=== PATIENT | female | born 1990 | race African-American/Black ===

== ENCOUNTER 2016-11-05 17:38 | Emergency (ER) | payer BC ==
--- NOTE | 2016-11-05 17:53 | ER Document Report ---
ED Medical Screen (RME) - General Stated Complaint: VAGINAL DISCHARGE Notes: LMP: sep [id number] OBGYN at [facility] and she had polyp removed from her cervix. Since wednesday, spotting and then she states she passed tissue, denies vaginal bleeding , denies cramping pain. denies urinary symptoms, vaginal d/c. I have greeted and performed a rapid initial assessment of this patient. A comprehensive ED assessment and evaluation of the patient, analysis of test results and completion of the medical decision making process will be conducted by additional ED providers. TRAVEL OUTSIDE OF THE [place] IN LAST 30 DAYS: No - Related Data Allergies/Adverse Reactions: No Known Allergies Allergy (Verified 07/17/16 14:39) Past Medical History Past Surgical History: Reports: Hx Adenoidectomy, Hx Tonsillectomy - Immunizations Hx Diphtheria, Pertussis, Tetanus Vaccination: No
[2016-11-05 18:58] LABS: APPEARANCE,URINE CLEAR; BILIRUBIN,URINE NEGATIVE (NEGATIVE); GLUCOSE, URINE NEGATIVE (NEGATIVE); KETONES,URINE NEGATIVE (NEGATIVE); LEUKOCYTE ESTERASE,URINE NEGATIVE (NEGATIVE); NITRITE,URINE NEGATIVE (NEGATIVE); PROTEIN,URINE NEGATIVE (NEGATIVE); URINE SPECIFIC GRAVITY 1.026; UROBILINOGEN,URINE NEGATIVE mg/dL (<2.0)
--- NOTE | 2016-11-05 19:38 | ER Document Report ---
ED GI/ - General Chief Complaint: Vaginal Discharge Stated Complaint: VAGINAL DISCHARGE Notes: Patient is a 26-year-old at 8 weeks gestation by first trimester ultrasound the emergency department for chief complaint of passing a tissue this evening, she states that she has had some bleeding and cramps over the past couple of days but this had resolved, she also had a cervical polyp removed on Wednesday by SUSTAINABLE DESIGN COORDINATOR. She denies any current symptoms. She has had workup to this point by [facility], she denies any medications other than vitamins. TRAVEL OUTSIDE OF THE [place] IN LAST 30 DAYS: No - Related Data Allergies/Adverse Reactions: No Known Allergies Allergy (Verified 11/05/16 17:51) Past Medical History - General Information source: Patient - Social History Smoking Status: Never Smoker Chew tobacco use (# tins/day): No Frequency of alcohol use: None Drug Abuse: None Lives with: Family Family History: Reviewed & Not Pertinent Patient has suicidal ideation: No Patient has homicidal ideation: No - Medical History Medical History: Negative Renal/ Medical History: Denies: Hx Peritoneal Dialysis Past Surgical History: Reports: Hx Adenoidectomy, Hx Tonsillectomy - Immunizations Hx Diphtheria, Pertussis, Tetanus Vaccination: Yes Review of Systems - Review of Systems Constitutional: No symptoms reported EENT: No symptoms reported Cardiovascular: No symptoms reported Respiratory: No symptoms reported Gastrointestinal: No symptoms reported Genitourinary: No symptoms reported Female Genitourinary: See HPI Musculoskeletal: No symptoms reported Skin: No symptoms reported Hematologic/Lymphatic: No symptoms reported Neurological/Psychological: No symptoms reported Physical Exam - Vital signs Vitals: Temp Pulse Resp BP Pulse Ox 98.8 F 80 20 150/87 H 100 11/05/16 17:51 11/05/16 17:51 11/05/16 17:51 11/05/16 17:51 11/05/16 17:51 Interpretation: Normal - General General appearance: Appears well, Alert In distress: None - HEENT Head: Normocephalic, Atraumatic Eyes: Normal Extraocular movements intact: Yes Eyelashes: Normal Pupils: PERRL Nasal: Normal Mouth/Lips: Normal Mucous membranes: Normal Pharynx: Normal Neck: Normal - Respiratory Respiratory status: No respiratory distress Chest status: Nontender Breath sounds: Normal. No: Decreased air movement, Wheezing Chest palpation: Normal - Cardiovascular Rhythm: Regular. No: Tachycardia Heart sounds: Normal auscultation, S1 appreciated, S2 appreciated Murmur: No - Abdominal Inspection: Normal Distension: No distension Bowel sounds: Normal Tenderness: Nontender. No: Tender, Guarding Organomegaly: No organomegaly - Back Back: Normal, Nontender. No: Tender, CVA tenderness - Extremities General upper extremity: Normal inspection, Nontender, Normal color, Normal ROM , Normal temperature General lower extremity: Normal inspection, Nontender, Normal color, Normal ROM , Normal temperature, Normal weight bearing. No: Dorina's sign - Neurological Neuro grossly intact: Yes Cognition: Normal Orientation: AAOx4 [place] Coma Scale Eye Opening: Spontaneous Loren Coma Scale Verbal: Oriented [place] Coma Scale Motor: Obeys Commands Loren Coma Scale Total: 15 Speech: Normal Motor strength normal: LUE, RUE, LLE, RLE Sensory: Normal - Psychological Associated symptoms: Normal affect, Normal mood - Skin Skin Temperature: Warm Skin Moisture: Dry Skin Color: Normal Course - Re-evaluation Re-evalutation: Patient brought the small amount of tissue in a paper towel to the emergency department tonight, I did review this, no veins suggesting placenta, no obvious tissue, there is some epithelial appearing tissue but nothing large or specific. Soft and non-tender abdomen. 11/06/16 CBC shows mild anemia, RhoGAM not indicated, urinalysis unremarkable, hCG is elevated. Ultrasound shows living IUP with normal findings with no acute abnormalities. Valuated patient, presented findings, patient is very satisfied with this, she states she is ready to leave. No current symptoms. I suspect small amount of tissue was related to the polyp removal although this is not definite, abdomen is soft, vital signs unremarkable, workup unremarkable, discussed follow-up and return precautions, patient states understanding and agreement. - Vital Signs Vital signs: Temp Pulse Resp BP Pulse Ox 98.1 F 67 16 128/71 H 96 11/05/16 21:24 11/05/16 21:24 11/05/16 21:24 11/05/16 21:24 11/05/16 21:24 - Laboratory Result Diagrams: 11/05/16 17:55 Laboratory results interpreted by me: 11/05/16 11/05/16 11/05/16 17:55 17:55 18:00 Hgb 11.4 L Hct 34.8 L MCV 79 L MCH 25.9 L RDW 16.1 H Serum HCG, Qual POSITIVE H Beta HCG, Quant 149669.00 H Discharge - Discharge Clinical Impression: Vaginal discharge, gestational Qualifiers: Trimester: first trimester Qualified Code(s): O26.891 - Other specified related conditions, first trimester Condition: Stable Disposition: HOME, SELF-CARE Additional Instructions: Ultrasound, examination, and workup with no concerning abnormalities. Living intrauterine is seen with no abnormalities. Tissue passed is most likely secondary to the removed polyp, although this is not definite at this time. Follow up with SUSTAINABLE DESIGN COORDINATOR Return the emergency department for any concerning symptoms. Forms: Return to Work Referrals: CLARY WELLINGTON MD [Primary Care Provider] - Follow up as needed
[2016-11-05 20:06] LABS: ABSOLUTE EOSINOPHILS # (AUTO) 0.1 10^3/uL (0.0-0.6); ABSOLUTE MONOCYTES (AUTO) 0.9 10^3/uL (0.1-1.4); BASOPHILS % (AUTO) 0.4 % (0-2); EOSINOPHILS % (AUTO) 0.9 % (0-6); HEMATOCRIT 34.8 % (36.0-47.0); HEMOGLOBIN 11.4 g/dL (12.0-15.5); HGB HCT DIFFERENCE -0.6; LYMPHOCYTES % (AUTO) 33.2 % (13-45); MEAN CORPUSCULAR HEMOGLOBIN 25.9 pg (27.0-33.4); MEAN CORPUSCULAR HGB CONC 32.9 g/dL (32.0-36.0); MEAN CORPUSCULAR VOLUME 79 fl (80-97); MONOCYTES % (AUTO) 10.5 % (3-13); RED BLOOD COUNT 4.42 10^6/uL (3.72-5.28); RED CELL DISTRIBUTION WIDTH 16.1 % (11.5-14.0)
[2016-11-05 21:25] VITALS: BP 128/71
== END 2016-11-05 21:24 | disposition home or self-care (01) ==
LOC: ER 17:38
DX: O26.891 Other specified pregnancy related conditions, first trimester (principal); N89.8 Other specified noninflammatory disorders of vagina; Z3A.08 8 weeks gestation of pregnancy
CPT/HCPCS: 36415; 76817; 81001; 84702; 84703; 85025; 86900; 86901; 87086; 93976; 99284

== ENCOUNTER 2017-06-02 11:39 | Outpatient (CLI) | payer BC ==
--- NOTE | 2017-06-02 13:56 | Non Stress Test Report ---
Non Stress Test Datetime Report Generated by CPN: 06/02/2017 13:56 DEMOGRAPHIC EGA NST: 38.2 INDICATION Indication for Study: Ordered by Provider Indication for Study (NST) Other: Repeat MONITORING Monitor Explained: Monitor Explained; Test Explained; Patient Verbalized Understanding Time on Monitor: 06/02/2017 13:35 Time off Monitor: 06/02/2017 12:55 NST Duration: -40 NST INTERVENTIONS NST Interventions: PO Hydration; Reposition Patient Physician Notified NST: H. Jeyson CNM BABY A: [id number] BABY A Movement : Present Contraction Frequency : none FHR Baseline : 155 Accelerations : 15X15 Decelerations : None Variability : Moderate 6-25bpm NST Review: Meets Criteria for Reactive NST NST Review and Verified By : dbellavance rnc NST Results: Reactive NST REPORT Report Trigger: Send Report
== END 2017-06-02 12:55 | disposition home or self-care (01) ==
LOC: LC 11:39
PROVIDERS: ATTEND Student in an Organized Health Care Education/Training Program
PROC: 4A1HXCZ Monitoring of Products of Conception, Cardiac Rate, External Approach (ICD-10-PCS; principal; 2017-06-02)
DX: Z34.93 Encounter for supervision of normal pregnancy, unspecified, third trimester (principal); Z36.89 Encounter for other specified antenatal screening; Z3A.38 38 weeks gestation of pregnancy
CPT/HCPCS: 59025

== ENCOUNTER 2017-06-09 12:23 | Outpatient (CLI) | payer BC ==
--- NOTE | 2017-06-17 05:14 | Non Stress Test Report ---
Non Stress Test Datetime Report Generated by CPN: 06/17/2017 05:14 DEMOGRAPHIC EGA NST: 39.2 INDICATION Indication for Study: Ordered by Provider; Other Indication for Study (NST) Other: tachycardia in provider's office VITAL SIGNS Temperature - NST: 98.2 Pulse - NST: 99 RESP - NST: 18 NBPSYS NST: 115 NBPDIA NST: 66 MONITORING Monitor Explained: Monitor Explained; Test Explained; Patient Verbalized Understanding; Other Time on Monitor: 06/09/2017 12:40 Time off Monitor: 06/09/2017 13:42 NST Duration: 62 NST INTERVENTIONS NST Interventions: PO Hydration; Reposition Patient Physician Notified NST: Dalia Torres, CNM. Provider reviewed strip BABY A: [id number] BABY A Movement : Present Contraction Frequency : Irregular FHR Baseline : 150 Accelerations : 15X15 Decelerations : None Variability : Moderate 6-25bpm NST Review: Meets Criteria for Reactive NST NST Review and Verified By : Austin Gifford RNC NST Results: Reactive NST REPORT Report Trigger: Send Report
== END 2017-06-09 13:48 | disposition home or self-care (01) ==
LOC: LC 12:23
PROVIDERS: ATTEND Obstetrics & Gynecology
PROC: 4A1HXCZ Monitoring of Products of Conception, Cardiac Rate, External Approach (ICD-10-PCS; principal; 2017-06-09)
DX: O76 Abnormality in fetal heart rate and rhythm complicating labor and delivery (principal); Z3A.39 39 weeks gestation of pregnancy
CPT/HCPCS: 59025

== ENCOUNTER 2017-06-17 06:59 | Inpatient (IN) | payer BC ==
[2017-06-17] MEDS ORDERED: OXYTOCIN/NORMAL SALINE 20 UNIT/1,000 ML RTUINJ IV PRN ×2 (07:12→18:45)
[2017-06-17 07:54] LABS: APPEARANCE,URINE SLIGHTLY-CLOUDY; BILIRUBIN,URINE NEGATIVE (NEGATIVE); GLUCOSE, URINE NEGATIVE (NEGATIVE); KETONES,URINE NEGATIVE (NEGATIVE); LEUKOCYTE ESTERASE,URINE SMALL (NEGATIVE); NITRITE,URINE NEGATIVE (NEGATIVE); PROTEIN,URINE 30 mg/dL (NEGATIVE); URINE SPECIFIC GRAVITY 1.028; UROBILINOGEN,URINE NEGATIVE mg/dL (<2.0)
[2017-06-17 08:00] LABS: ABSOLUTE LYMPHOCYTES (AUTO) 2.4 10^3/uL (0.5-4.7); ABSOLUTE MONOCYTES (AUTO) 0.7 10^3/uL (0.1-1.4); ABSOLUTE NEUT (AUTO) 4.8 10^3/uL (1.7-8.2); BASOPHILS % (AUTO) 0.2 % (0-2); EOSINOPHILS % (AUTO) 0.6 % (0-6); HEMATOCRIT 28.4 % (36.0-47.0); HEMOGLOBIN 9.2 g/dL (12.0-15.5); HGB HCT DIFFERENCE -0.8; MEAN CORPUSCULAR HEMOGLOBIN 22.2 pg (27.0-33.4); MEAN CORPUSCULAR HGB CONC 32.4 g/dL (32.0-36.0); MEAN CORPUSCULAR VOLUME 69 fl (80-97); MONOCYTES % (AUTO) 8.6 % (3-13); RED BLOOD COUNT 4.14 10^6/uL (3.72-5.28); RED CELL DISTRIBUTION WIDTH 21.5 % (11.5-14.0); SEGMENTED NEUTROPHILS % (AUTO) 60.6 % (42-78); WHITE BLOOD COUNT 7.9 10^3/uL (4.0-10.5)
[2017-06-17] MEDS ORDERED: OXYTOCIN/NORMAL SALINE 20 UNIT/1,000 ML RTUINJ ONE (08:09)
[2017-06-17 08:12] LABS: URINE BARBITURATES SCREEN NEGATIVE; URINE METHADONE SCREEN NEGATIVE; URINE OPIATES LOW NEGATIVE; URINE PHENCYCLIDINE SCREEN NEGATIVE
[2017-06-17] MEDS ORDERED: RINGERS SOLUTION,LACTATED 300 ML IV ONE (10:42)
[2017-06-17] MEDS ORDERED: RINGERS SOLUTION,LACTATED 1,000 ML IV PRN (10:42)
--- NOTE | 2017-06-17 12:32 | L&D Progress Notes ---
PROGRESS NOTES Datetime Report Generated by CPN: 06/17/2017 12:32 PROGRESS NOTE Impression: Reassuring Heart Rate Procedures: Artificial ROM; Sterile Vag Exam Plan: Continue Present Management; Induction Informed Consent Obtained: Vaginal Delivery Vital Signs : Reviewed; Within Normal Limits Comment: VE = 6-7/100/vtx/0, requesting epidural, Cat 1 strip VAGINAL EXAM Dilatation: 6 Effacement: 100 Station: 0 MEMBRANES Membranes: Ruptured Amniotic Fluid Color: Clear FETUS A FHR - Baseline: 155 Variability: Moderate 6-25bpm Accelerations: 15X15 Decelerations: None : 40.3 SIGNATURE SIGNATURE: [id number] SIGNATURE: [id number] SIGNATURE: [id number] Assignment: Cindy Mojica MD Signature: with User ID: [email or web address] : with User ID: [email or web address]
[2017-06-17] MEDS ORDERED: FENTANYL CITRATE INJ/PF 100 MCG/2 ML AMPUL ONE (12:33)
[2017-06-17] MEDS ORDERED: EPHEDRINE SULFATE INJ 50 MG/1 ML AMPULE ONE (12:34)
[2017-06-17] MEDS ORDERED: FENTANYL/BUPIVACAINE/NS/PF 200 MCG/100 ML RTUINJ EPI ONE (12:34)
[2017-06-17] MEDS ORDERED: PHENYLEPHRINE HCL INJ/PF 10 MG/1 ML SDV ONE (12:34)
[2017-06-17] MEDS ORDERED: BUPIVACAINE HCL 0.25 % INJ/PF (2.5 MG/1 ML) 30 ML VIAL ONE ×2 (12:34→12:37)
[2017-06-17] MEDS ORDERED: LIDOCAINE 1% INJ-PF (10 MG/ML) 30 ML SDV ONE ×2 (12:48→13:35)
[2017-06-17] MEDS ORDERED: MISOPROSTOL 0.2 MG TABLET ONE (13:35)
--- NOTE | 2017-06-17 13:50 | L&D Progress Notes ---
PROGRESS NOTES Datetime Report Generated by CPN: 06/17/2017 13:50 PROGRESS NOTE Impression: Normal Progression of Labor; Reassuring Heart Rate Procedures: Sterile Vag Exam Comment: VE /vtx/0, late decels after epidural resolved, + scalp stim. mod variability, uc's q 2-3 min, Pitocin off FETUS C SIGNATURE: [id number];[id number] Assignment: Cindy Mojica MD Signature: with User ID: [email or web address] : with User ID: [email or web address]
--- NOTE | 2017-06-17 15:30 | L&D Progress Notes ---
PROGRESS NOTES Datetime Report Generated by CPN: 06/17/2017 15:30 PROGRESS NOTE Procedures: Sterile Vag Exam Plan: Induction Comment: Rim, small amount of suture on cervix from cerclage, + scalp stim, uc's q 2-2 1/2, comfortable FETUS C SIGNATURE: [id number];[id number] Assignment: Cindy Mojica MD Signature: with User ID: [email or web address] : with User ID: [email or web address]
[2017-06-17] MEDS ORDERED: NORMAL SALINE 250 ML IV PRN (16:42)
[2017-06-17] MEDS ORDERED: ACETAMINOPHEN 325 MG TABLET ONE (17:42)
[2017-06-17] MEDS ORDERED: ACETAMINOPHEN 325 MG TABLET PO ONE (17:43)
[2017-06-17] MEDS ORDERED: MEASLES,MUMPS&RUBELLA VACC/PF 0.5 ML VIAL SUBCUT PRN (18:45)
[2017-06-17] MEDS ORDERED: ACETAMINOPHEN WITH CODEINE #3 TABLET PO PRN ×2 (18:45)
[2017-06-17] MEDS ORDERED: PROMETHAZINE HCL INJ 25 MG/1 ML VIAL IV PRN (18:45)
[2017-06-17] MEDS ORDERED: NA PHOS,M-B/NA PHOS,DI-BA (ADULT) 133 ML ENEMA PR PRN (18:45)
[2017-06-17] MEDS ORDERED: BENZOCAINE/MENTHOL AEROSOL SPRAY 56 ML TOP PRN (18:45)
[2017-06-17] MEDS ORDERED: DIPH/PERTUSS(ACELL)/TETANUS VAC/PF 0.5 ML SYR (>=10YO) IM PRN (18:45)
[2017-06-17] MEDS ORDERED: MAGNESIUM HYDROXIDE SUSP 30 ML UDCUP PO PRN (18:45)
[2017-06-17] MEDS ORDERED: GLYCERIN/WITCH HAZEL LEAF 1 EACH MED..PAD TP PRN (18:45)
[2017-06-17] MEDS ORDERED: PROMETHAZINE HCL 25 MG SUPP.RECT PR PRN (18:45)
[2017-06-17] MEDS ORDERED: PROMETHAZINE HCL 25 MG TABLET PO PRN (18:45)
[2017-06-17] MEDS ORDERED: ZOLPIDEM TARTRATE 5 MG TABLET PO PRN (18:45)
[2017-06-17] MEDS ORDERED: ACETAMINOPHEN 650 MG SUPP.RECT PR PRN (18:45)
[2017-06-17] MEDS ORDERED: DIBUCAINE 1% OINTMENT 28 GM TP PRN (18:45)
[2017-06-17] MEDS ORDERED: PSEUDOEPHEDRINE HCL 30 MG TABLET PO PRN (18:45)
[2017-06-17] MEDS ORDERED: DIPHENHYDRAMINE HCL 25 MG CAPSULE PO PRN (18:45)
--- NOTE | 2017-06-17 19:39 | Delivery Summary ---
Del Sum A-C Datetime Report Generated by CPN: 06/17/2017 19:39 DELIVERY PERSONNEL DELIVERY PERSONNEL: [id number] Delivery Doctor:: Cidny Mojica MD Labor and Delivery Nurse:: Seth Molina RNmedical office representative Nurse:: TAWNY Colmenares Nursery Nurse:: Tereso Pressley RN Nursery Nurse:: Edel Almaraz RN Pouch Making Machine Operator/HOME VISITOR HOME BASE HEAD START: Maria Dolores Griffith CNA II Pouch Making Machine Operator/HOME VISITOR HOME BASE HEAD START: Eloise Sanchez CST Additional Personnel: : VU MitchellIII MATERNAL INFORMATION Delivery Anesthesia: Epidural Medications After Delivery: Pitocin Bolus-Please Comment; Pitocin Drip 20 Units/1000ml NSS Estimated Blood Loss (ml): 300 Maternal Complications: None LABOR SUMMARY EDC: 06/14/2017 00:00 No. Babies in Womb: 1 Attempted: No Labor Anesthesia: Epidural LABOR INFORMATION Reason for Induction: Post Dates; Polyhydramnios; Other Reason for Induction- Other: GDM Onset of Labor: 06/17/2017 12:27 Complete Dilatation: 06/17/2017 17:48 Oxytocin: Induction Group B Beta Strep: neg Antibiotics # of Doses: 0 Steroids Given: None Reason Steroids Not Administered: Not Applicable MEMBRANES Membranes Rupture Method: Artificial Rupture of Membranes: 06/17/2017 12:28 Length of Rupture (hr): 5.78 Amniotic Fluid Color: Clear Amniotic Fluid Amount: Large Amniotic Fluid Odor: Normal STAGES OF LABOR Stage 1 hr: 5 Stage 1 min: 21 Stage 2 hr: 0 Stage 2 min: 27 Stage 3 hr: 0 Stage 3 min: 6 Total Time in Labor hr: 5 Total Time in Labor min: 54 VAGINAL DELIVERY Episiotomy: None Laceration #1: Cervical Laceration Extension #1: N/A Laceration Repair: Yes Laceration Repair Note: cervix repaired with 2-0 chromic in running locked fashion. Cervix noted to have defect with hole torn in posterior aspect of cervix. Did not repair as the hole was complete and hemostatic. will assess Sponge Count Correct: N/A Sharps Count Correct: N/A CSECTION DELIVERY Primary Indication: N/A CSection Incidence: N/A Labor: N/A Elective: N/A CSection Incision: N/A BABY A INFORMATION Delivery Date/Time: 06/17/2017 18:15 Method of Delivery: Vaginal Born in Route : No : N/A Forceps: N/A Vacuum Extraction: N/A Shoulder Dystocia : No PRESENTATION/POSITION BABY A Presentation: Cephalic Cephalic Presentation: Vertex Vertex Position: Direct OA Breech Presentation: N/A PLACENTA INFORMATION BABY A Placenta Delivery Time : 06/17/2017 18:21 Placenta Method of Delivery: Spontaneous Placenta Status: Delivered SCORES BABY A Heart Rate 1 min: >100 bpm Resp Effort 1 min: Slow, Irregular Reflex Irritability 1 min: Cough or Sneeze or Pulls Away Muscle Tone 1 min: Active Motion Color 1 min: Body Buck[place], Extremities Blue SCORE 1 MIN: 8 Heart Rate 5 min: >100 bpm Resp Effort 5 min: Good Cry Reflex Irritability 5 min: Cough or Sneeze or Pulls Away Muscle Tone 5 min: Active Motion Color 5 min: Body [place], Extremities Blue SCORE 5 MIN: 9 INFORMATION BABY A Gestational Age at Delivery: 40.3 Gestational Status: Full Term- 39- 40.6 Weeks Outcome : Liveborn Condition : Stable Sex: Female IDENTIFICATION BABY A Infant Verification Date/Time: 06/17/2017 18:36 ID Band Number: [id number] Mother's Name Verified: Yes Infant RN Verifying : C Cotterman RN Additional Verifying Personnel: D [facility] RNC WEIGHT/LENGTH BABY A Infant Birthweight (gm): 3570 Infant Weight (lb): 7 Weight (oz): 14 Length (in): 21.50 Length (cm): 54.61 CORD INFORMATION BABY A No. Cord Vessels: 3 Nuchal Cord : N/A Cord Blood Taken: Yes-For Storage (Mom's Blood type +) Suction: None; Mouth ASSESSMENT BABY A Complications: None Physical Findings at Delivery: Within Normal Limits Infant Respirations: Appears Normal Skin to Skin: Yes Skin to Skin Time (min): 60 Medical Assistant Supervisor/ALS Called : No Infant Care By: Antolin Pressley, RN Transferred To: Remains with Mother BABY B INFORMATION : N/A SIGNATURES Signature: with User ID: [email or web address]
--- NOTE | 2017-06-17 20:34 | Admission Physical ---
Datetime Report Generated by CPN: 06/17/2017 20:33 CURRENT ADMISSION Chief Complaint: Scheduled Induction of Labor Indication for Induction: Postterm; Maternal Diabetes Indication for Induction: Postterm, Intrauterine ; No Active Labor; Intact Membranes; Induction of Labor Admit Plan: Admit to Unit; Initiate Labor Induction Protocol ALLERGIES Medication Allergies: No Medication Allergies: No Known Allergies (06/17/2017) Medication Allergies: No Known Allergies (06/09/2017) Medication Allergies: No Known Allergies (11/05/2016) Medication Allergies: No Known Allergies (07/17/2016) Medication Allergies: No Known Allergies (02/06/2014) Latex: No Latex Allergies OBSTETRICAL HISTORY EDC: 06/14/2017 00:00 : 5 Para: 1 Term: 0 : 1 SAB: 3 IAB: 0 Ectopic: 0 Livin Cesareans: 0 VBACs: 0 Multiple Births: 0 Gestational Diabetes: Yes Rh Sensitization: No Incompetent Cervix: Yes JOCELYN: No Infertility: No ART Treatment: No Uterine Anomaly: No IUGR: No Hx Previous C/S: No Macrosomia: No Hx Loss/Stillborn: No PIH: No Hx : No Placenta Previa/Abruption: No Depression/PP Depression: No PTL/PROM: Yes Post Hemorrhage: Yes Current Procedures: Ultrasound; NST; Cerclage Obstetrical History Comments: G1- 2012 male 1lb 10oz 25 weeks (PTL vs cervical incompetence) - at 1 years old, stopped breathing, enlarged heart during autopsy - 2013 10 week SAB blood transfusion needed G3- 2014 SAB G4- 2015 5 week SAB G6- current, cerclage, p17, gdm, poly, suspicion of partial TEF per MFM SEE RECORDS Alcohol: No Marijuana : No Cocaine: No Other Illicit Drugs: No Cigarettes: Never Smoker. [id number] MEDICAL HISTORY Diabetes: No Blood Transfusion: No Pulmonary Disease (Asthma, TB): No Breast Disease: No Hypertension: No Medicaid Business Analyst Surgery: No Heart Disease: No Hosp/Surgery: Yes Autoimmune Disorder: No Anesthetic Complications: No Kidney Disease: No Abnormal Pap Smear: No Neuro/Epilepsy: No Psychiatric Disorders: No Other Medical Diseases: No Hepatitis/Liver Disease: No Significant Family History: No Varicosities/Phlebitis: No Trauma/Violence : No Thyroid Dysfunction: No Medical History Comments: vit D deficiency INFECTIOUS HISTORY Gonorrhea: No Genital Herpes: No Chlamydia: Yes Tuberculosis: No Syphilis: No Hepatitis: No HIV/AIDS Exposure: No Rash or Viral Illness: No HPV: No Infectious History Comments: chlam 2005 PHYSICAL EXAM General: Normal HEENT: Normal Neurologic: Normal Thyroid: Normal Heart: Normal Lungs: Normal Breast: Deferred Back: Normal Abdomen: Normal Genitourinary Exam: Normal Extremities: Normal DTRs: Normal Pelvic Type: Adequate Physical Exam Comments: Cerclage removed at 37 weeks anemia Obesity Insulin resistance Polyhydramnios resolved 10-2 Vit D deficiency VAGINAL EXAM Dilatation: 6 Effacement: 100 Station: 0 MEMBRANES Membranes: Ruptured Amniotic Fluid Color: Clear FETUS A EGA: 40.3 Monitoring: External US Admit Comment: Cat 1 strip, irreg uc's, feeling uc's but mild, wants epidural when needed POC reviewed PLANS FOR LABOR AND DELIVERY Labor and Delivery: None Pain Management: Epidural Feeding Preference: Breast Benefit of Breast Feed Discussed: Yes Circumcision: N/A INFORMED CONSENT Informed Consent Obtained: Vaginal Delivery Assignment: Cindy Mojica MD Signature: with User ID: [email or web address] : with User ID: [email or web address]
[2017-06-17] MEDS: IBUPROFEN 800 MG TABLET PO SCH (22:26)
[2017-06-17] MEDS: FAMOTIDINE 20 MG TABLET PO SCH (22:27)
[2017-06-18] MEDS: IBUPROFEN 800 MG TABLET PO SCH ×3 (05:17→22:33)
[2017-06-18 08:00] LABS: HGB HCT DIFFERENCE -0.2; MEAN CORPUSCULAR HEMOGLOBIN 22.6 pg (27.0-33.4); MEAN CORPUSCULAR HGB CONC 33.2 g/dL (32.0-36.0); MEAN CORPUSCULAR VOLUME 68 fl (80-97); RED BLOOD COUNT 3.37 10^6/uL (3.72-5.28); RED CELL DISTRIBUTION WIDTH 21.1 % (11.5-14.0); WHITE BLOOD COUNT 10.9 10^3/uL (4.0-10.5)
[2017-06-18 08:02] LABS: HEMOGLOBIN 7.6 g/dL (12.0-15.5)
[2017-06-18] MEDS: FERROUS SULFATE 325 MG TABLET PO SCH ×3 (09:10→17:33)
[2017-06-18] MEDS: SENNOSIDES/DOCUSATE 8.6-50 MG 1 EACH TABLET PO SCH (09:11)
[2017-06-18] MEDS: FAMOTIDINE 20 MG TABLET PO SCH ×2 (09:11→22:33)
[2017-06-18] MEDS: ASCORBIC ACID 500 MG TABLET PO SCH ×2 (09:12→17:32)
[2017-06-18] MEDS: DOCUSATE SODIUM 100 MG CAPSULE PO SCH ×2 (09:12→17:33)
[2017-06-18] MEDS: PRENATAL VITAMIN W-O CA NO5/FE FUMARATE/FA CAPSULE PO SCH (09:14)
--- NOTE | 2017-06-18 09:33 | PDOC PROGRESS REPORT ---
Subjective-OB Subjective: Post Delivery Day: 27 year old. Denies any needs at this time. Pt doing well, no concerns. She reports light bleeding, regular diet and voiding without difficulty. Physical Exam (OB) Vital Signs: Temp Pulse Resp BP Pulse Ox 98.0 F 89 16 103/53 L 100 06/18/17 07:54 06/18/17 07:54 06/18/17 07:54 06/18/17 07:54 06/18/17 07:54 Intake & Output 06/17/17 06/18/17 06/19/17 06:59 06:59 06:59 Intake Total 1999 Balance 1999 Weight 114.15 kg - Lochia Lochia Amount: Small 10-25 ml Lochia Color: Rubra/Red - Abdomen Description: Soft, Round Hernia Present: No Fundal Description: Firm, Midline Fundal Height: u/u - u/2 Objective-Diagnostic Laboratory: 06/18/17 06:55 06/17/17 06/18/17 07:44 06:55 WBC 10.9 H RBC 3.37 L Hgb 7.6 L Hct 23.0 L MCV 68 L MCH 22.6 L MCHC 33.2 RDW 21.1 H Plt Count 162 Blood Type AB POSITIVE Antibody Screen NEGATIVE Assessment and Plan(PN) - Assessment and Plan (1) Anemia due to acute blood loss Is this a current diagnosis for this admission?: Yes (2) Vaginal delivery Is this a current diagnosis for this admission?: Yes - Time Spent with Patient Time with patient: Less than 15 minutes Medications reviewed and adjusted accordingly: Yes - Disposition Anticipated Discharge: Home Within: within 24 hours
[2017-06-18] MEDS ORDERED: FERROUS SULFATE 325 MG TABLET PO SCH (10:00)
[2017-06-19] MEDS: IBUPROFEN 800 MG TABLET PO SCH ×2 (06:29→13:18)
[2017-06-19 08:11] VITALS: BP 109/57
[2017-06-19] MEDS: FAMOTIDINE 20 MG TABLET PO SCH (10:05)
[2017-06-19] MEDS: FERROUS SULFATE 325 MG TABLET PO SCH ×2 (10:05→13:18)
[2017-06-19] MEDS: DOCUSATE SODIUM 100 MG CAPSULE PO SCH (10:05)
[2017-06-19] MEDS: PRENATAL VITAMIN W-O CA NO5/FE FUMARATE/FA CAPSULE PO SCH (10:05)
[2017-06-19] MEDS: SENNOSIDES/DOCUSATE 8.6-50 MG 1 EACH TABLET PO SCH (10:05)
[2017-06-19] MEDS: ASCORBIC ACID 500 MG TABLET PO SCH (10:06)
--- NOTE | 2017-06-19 12:12 | PDOC DISCHARGE SUMMARY ---
Final Diagnosis Discharge Date: 06/19/17 - Final Diagnosis (1) Anemia due to acute blood loss Is this a current diagnosis for this admission?: Yes (2) Vaginal delivery Is this a current diagnosis for this admission?: Yes Discharge Data - Discharge Medication Home Medications: Iron 1 tab PO DAILY 06/02/17 Pnv 102/Iron/Folate 1/Dss/Dha [Vitafol Fe+ Docusate Combo Pck] 1 each PO DAILY 06/02/17 Ergocalciferol (Vitamin D2) [Vitamin D] 400 unit PO PRN PRN 06/09/17 Reason(s) for Admission: Induction of Labor Procedures: NST Intrapartum Procedure(s): Spontaneous Vaginal Delivery Complication(s): Laceration-Cervical Laceration-Degree: 1st - Diagnosis Test Laboratory: Temp Pulse Resp BP Pulse Ox 98.5 F 95 16 109/57 L 100 06/19/17 07:49 06/19/17 07:49 06/19/17 07:49 06/19/17 07:49 06/19/17 07:49 06/17/17 06/17/17 06/18/17 07:10 07:44 06:55 RBC 4.14 3.37 L Hgb 9.2 L 7.6 L Hct 28.4 L 23.0 L Urine Opiates Screen NEGATIVE - Discharge information/Instructions Discharge Activity: Activity As Tolerated, No Lifting/Push/Pulling, Pelvic Rest , No tub bath Discharge Diet: Regular Disposition: HOME, SELF-CARE Follow up with: [facility] in: 4, Weeks
== END 2017-06-19 15:02 | disposition home or self-care (01) | DRG 775 ==
LOC: LR 06:59 → 2S 20:27
PROVIDERS: ADMIT Obstetrics & Gynecology; ATTEND Obstetrics & Gynecology
PROC: 10E0XZZ Delivery of Products of Conception, External Approach (ICD-10-PCS; principal; 2017-06-17)
PROC: 3E0P3VZ Introduction of Hormone into Female Reproductive, Percutaneous Approach (ICD-10-PCS; 2017-06-17)
PROC: 10907ZC Drainage of Amniotic Fluid, Therapeutic from Products of Conception, Via Natural or Artificial Opening (ICD-10-PCS; 2017-06-17)
PROC: 4A1HXCZ Monitoring of Products of Conception, Cardiac Rate, External Approach (ICD-10-PCS; 2017-06-17)
PROC: 3E0234Z Introduction of Serum, Toxoid and Vaccine into Muscle, Percutaneous Approach (ICD-10-PCS; 2017-06-19)
DX: O48.0 Post-term pregnancy (principal); D62 Acute posthemorrhagic anemia; O40.3XX0 Polyhydramnios, third trimester, not applicable or unspecified; O24.429 Gestational diabetes mellitus in childbirth, unspecified control; Z37.0 Single live birth; Z3A.40 40 weeks gestation of pregnancy; O99.02 Anemia complicating childbirth; Z23 Encounter for immunization
CPT/HCPCS: 36415; 80307; 81005; 85025; 85027; 86592; 86850; 86900; 86901; 86920; 90715; 94760; J2370; J2590; J3010; J3490

== ENCOUNTER 2018-12-14 07:27 | Day surgery (SDC) | payer BC ==
[2018-12-14] MEDS ORDERED: CEFAZOLIN 2 GM/D5W RTU 2 GM/50 ML RTUPB IV ONE (07:41)
[2018-12-14 08:26] LABS: MEAN CORPUSCULAR HEMOGLOBIN 26.3 pg (27.0-33.4); MEAN CORPUSCULAR HGB CONC 33.3 g/dL (32.0-36.0); MEAN CORPUSCULAR VOLUME 79 fl (80-97); PLATELET COUNT 256 10^3/uL (150-450); RED BLOOD COUNT 4.18 10^6/uL (3.72-5.28); RED CELL DISTRIBUTION WIDTH 15.5 % (11.5-14.0); WHITE BLOOD COUNT 6.4 10^3/uL (4.0-10.5)
[2018-12-14 08:59] LABS: APPEARANCE,URINE CLEAR; BILIRUBIN,URINE NEGATIVE (NEGATIVE); COLOR,URINE YELLOW; GLUCOSE, URINE NEGATIVE (NEGATIVE); KETONES,URINE TRACE mg/dL (NEGATIVE); LEUKOCYTE ESTERASE,URINE NEGATIVE (NEGATIVE); NITRITE,URINE NEGATIVE (NEGATIVE); PROTEIN,URINE NEGATIVE (NEGATIVE); URINE SPECIFIC GRAVITY 1.027; UROBILINOGEN,URINE NEGATIVE mg/dL (<2.0)
[2018-12-14] MEDS ORDERED: RINGERS SOLUTION,LACTATED 1,000 ML IV PRN (09:58)
--- NOTE | 2018-12-14 10:13 | Operative Report ---
Operative Report DATE OF SURGERY: 12/14/18 PREOPERATIVE DIAGNOSIS: History of cervical incompetence POSTOPERATIVE DIAGNOSIS: Same with the addition of retained cerclage stitch and cervical laceration OPERATION: Shah cerclage placement x1 SURGEON: CHRISTOPHER ZURITA ANESTHESIA: Spinal TISSUE REMOVED OR ALTERED: Cervix COMPLICATIONS: None ESTIMATED BLOOD LOSS: Minimal INTRAOPERATIVE FINDINGS: A cerclage stitch is present with the ends of the suture removed. The knot can be seen. Also the patient has a cervical lacera tion from 3 to 6:00. PROCEDURE: Patient was taken to the OR and placed in supine position. This is after her spinal had been placed. She is placed in dorsolithotomy position using Bc stirrups. She was prepared and draped in sterile fashion. She had voided prior to the procedure. A weighted speculum was placed in the vagina and the anterior lip and posterior lip were grasped with Allis clamps. A Ryan retractor was used to retract anteriorly. At this point I could see a suture knot present at 12:00 on the cervix. The suture material appeared very old. The knot was elevated and the suture incised. The entire stitch was removed intact. Also a cervical laceration that was now well-healed could be seen from 3 to 6:00. A #1 Ethibond suture was then placed from 12:00 to 3:00, 3:00 to 6:00, 6:00 to 9:00, 9:00 to 12:00 and tied. At this point I stopped the procedure. The suture appears well placed however I am concerned about the cervical laceration which is most likely from her previous delivery with the previous cerclage in place. At this point we will continue with the progesterone and monitoring cervical length. We will also get a maternal medicine consult.
--- NOTE | 2018-12-14 10:15 | Discharge Summary ---
Discharge Summary (SDC) - Discharge Final Diagnosis: Incompetent cervix Date of Surgery: 12/14/18 Discharge Date: 12/14/18 Condition: Good Referrals: LINA TOLENTINO MD [Primary Care Provider] - Discharge Diet: Regular Discharge Activity: Pelvic Rest Report the Following to Your Physician Immediately: Unusual Bleeding
--- NOTE | 2018-12-14 12:54 | RADIOLOGY REPORT (SQ) ---
EXAM DESCRIPTION: U/S OB LIMITED COMPLETED DATE/TIME: 12/14/2018 11:22 am REASON FOR STUDY: check fht and cerclage placement O09.213 SUPRVSN OF PREG W HISTORY OF PRE-TERM LA BOR, THIRD T gestational age 14 weeks 2 days COMPARISON: None. TECHNIQUE: Limited transabdominal grayscale ultrasound for evaluation of specific requested obstetri xiomy parameters. LIMITATIONS: None. FINDINGS: CERVICAL LENGTH: 3 cm. Closed. LVP: 5 cm. FHR: 163 beats per minute. PRESENTATION: Variable PLACENTA: Fundal, grade 1. ANATOMY: Not assessed OTHER: No other significant findings. IMPRESSION: LIMITED OBSTETRICAL ULTRASOUND WITH MEASURED PARAMETERS DELINEATED ABOVE. Trimester of : Second trimester - 13 weeks 1 day to 27 weeks 6 days. TECHNICAL DOCUMENTATION: JOB ID: [id number] [employer]- All Rights Reserved Reading location - IP/workstation name: [email or web address]
[2018-12-14] MEDS ORDERED: ACETAMINOPHEN 325 MG TABLET ONE (13:56)
[2018-12-14 15:39] VITALS: BP 128/79
== END 2018-12-14 15:35 | disposition home or self-care (01) ==
LOC: OROUT 07:27
PROVIDERS: ATTEND Obstetrics & Gynecology
DX: O34.32 Maternal care for cervical incompetence, second trimester (principal); O09.212 Supervision of pregnancy with history of pre-term labor, second trimester
CPT/HCPCS: 36415; 76815; 81001; 85027; 948; J0690

== ENCOUNTER 2019-02-23 16:23 | Outpatient (CLI) | payer BC ==
[2019-02-23 17:18] LABS: APPEARANCE,URINE CLEAR; BILIRUBIN,URINE NEGATIVE (NEGATIVE); COLOR,URINE STRAW; GLUCOSE, URINE NEGATIVE (NEGATIVE); KETONES,URINE NEGATIVE (NEGATIVE); LEUKOCYTE ESTERASE,URINE TRACE (NEGATIVE); NITRITE,URINE NEGATIVE (NEGATIVE); PROTEIN,URINE NEGATIVE (NEGATIVE); URINE SPECIFIC GRAVITY 1.006; UROBILINOGEN,URINE NEGATIVE mg/dL (<2.0)
[2019-02-23 17:30] LABS: URINE AMPHETAMINES SCREEN NEGATIVE; URINE BARBITURATES SCREEN NEGATIVE; URINE BENZODIAZEPINES SCREEN NEGATIVE; URINE COCAINE SCREEN NEGATIVE; URINE MARIJUANA (THC) SCREEN NEGATIVE; URINE METHADONE SCREEN NEGATIVE; URINE PHENCYCLIDINE SCREEN NEGATIVE
--- NOTE | 2019-02-23 18:50 | RADIOLOGY REPORT (SQ) ---
EXAM DESCRIPTION: U/S OB LIMITED COMPLETED DATE/TIME: 02/23/2019 5:58 pm REASON FOR STUDY: r/o labor,cerclage in place COMPARISON: None. TECHNIQUE: Limited transvaginal and transabdominal grayscale ultrasound for evaluation of specific r equested obstetrical parameters. LIMITATIONS: None. FINDINGS: CERVICAL LENGTH: 2.9 cm cerclage is demonstrated. No definite funneling is demonstrated . ROSALIO: adequate amount cm. FHR: 163 beats per minute. PRESENTATION: Cephalic. PLACENTA: Not assessed ANATOMY: Not assessed OTHER: No other significant findings. IMPRESSION: LIMITED OBSTETRICAL ULTRASOUND WITH MEASURED PARAMETERS DELINEATED ABOVE. Trimester of : Second trimester - 13 weeks 1 day to 27 weeks 6 days. TECHNICAL DOCUMENTATION: JOB ID: [id number] [employer]- All Rights Reserved Reading location - IP/workstation name: [email or web address]
== END 2019-02-23 19:08 | disposition home or self-care (01) ==
LOC: LC 16:23
PROVIDERS: ATTEND Obstetrics & Gynecology Gynecology
DX: O34.32 Maternal care for cervical incompetence, second trimester (principal); Z3A.24 24 weeks gestation of pregnancy
CPT/HCPCS: 76815; 80307; 81001

== ENCOUNTER 2019-06-06 00:02 | Inpatient (IN) | payer BC ==
[2019-06-06] MEDS ORDERED: RINGERS SOLUTION,LACTATED 1,000 ML IV PRN (00:18)
[2019-06-06] MEDS ORDERED: CEFAZOLIN INJ 1 GM VIAL ONE ×2 (00:21→00:24)
[2019-06-06] MEDS ORDERED: CITRIC ACID/SODIUM CITRATE ORAL SOLN 15 ML UDCUP ONE ×2 (00:21→00:24)
[2019-06-06] MEDS ORDERED: OXYTOCIN/NORMAL SALINE 0 UNIT/0 ML RTUINJ ONE (00:28)
[2019-06-06] MEDS ORDERED: LIDOCAINE 1% INJ-PF (10 MG/ML) 30 ML SDV ONE (00:28)
[2019-06-06] MEDS ORDERED: OXYTOCIN 10 UNIT/ML VIAL ONE ×2 (00:28→00:44)
[2019-06-06] MEDS ORDERED: MISOPROSTOL 0.2 MG TABLET ONE ×2 (00:28→00:57)
--- NOTE | 2019-06-06 00:35 | Admission Physical ---
Datetime Report Generated by CPN: 06/06/2019 00:34 CURRENT ADMISSION Chief Complaint: Uterine Contractions; Scheduled Section Indication for Induction: Not Applicable; Macrosomia Admit Impression : Term, Intrauterine ; Active Labor; Primary Section Admit Impression- Other: Patient with A1DM and supspected macrosomia with wt ">10 lbs" per the patient. she indicates she is scheduled for a primary c/s at [facility] for Wednesday in light of the macrosomia. she desires to proceed with c/section at this time. Admit Plan: Admit to Unit; Initiate Section Protocol Admit Plan- Other: Patient has a h/o cerclage in last and in this x2. complication with her last include incomplete removal of the cerclage and incidental tearing of her cervix at that delivery. indicates a h/o PPH x 2. Has had a recent Iron transfusion for anemia. ALLERGIES Medication Allergies: No Medication Allergies: No Known Allergies (12/13/2018) Latex: No Latex Allergies OBSTETRICAL HISTORY EDC: 06/12/2019 00:00 : 6 Para: 2 Term: 1 : 1 Ectopic: 0 Livin Cesareans: 0 VBACs: 0 Multiple Births: 0 Incompetent Cervix: Yes PTL/PROM: Yes PHYSICAL EXAM General: Normal HEENT: Normal Neurologic: Normal Thyroid: Normal Heart: Normal Lungs: Normal Breast: Normal Back: Normal Abdomen: Normal Genitourinary Exam: Normal Extremities: Normal DTRs: Normal Pelvic Type: Adequate Vital Signs: Reviewed VAGINAL EXAM Dilatation: 7 Effacement: 100 Station: 1 MEMBRANES Pooling: Positive Membranes: Ruptured FETUS A EGA: 39.1 Monitoring: External US FHR- Baseline: 140 Variability: Moderate 6-25bpm Accelerations: 15X15 Decelerations: None FHR Category: Category I Presentation: Vertex Admit Comment: will proceed with primary c/section for suspected macrosomia (trying to confirm via records) but I agree that this baby does indeed feel > 10 lbs and patient's preference is to proceed with planned c/section. I did discuss BTL with the patient but she declines in favor of husbands planned vasectomy. INFORMED CONSENT Signature: with User ID: Katheryn
[2019-06-06] MEDS ORDERED: ONDANSETRON HCL INJ/PF 4 MG/2 ML SDV ONE (00:43)
[2019-06-06] MEDS ORDERED: PHENYLEPHRINE HCL INJ/PF 10 MG/1 ML SDV ONE (00:43)
[2019-06-06] MEDS ORDERED: MIDAZOLAM 2 MG/2 ML INJ ONE (00:44)
[2019-06-06 00:45] LABS: ABSOLUTE LYMPHOCYTES (AUTO) 2.5 10^3/uL (0.5-4.7); ABSOLUTE MONOCYTES (AUTO) 0.7 10^3/uL (0.1-1.4); ABSOLUTE NEUT (AUTO) 3.9 10^3/uL (1.7-8.2); BASOPHILS % (AUTO) 0.2 % (0-2); EOSINOPHILS % (AUTO) 0.6 % (0-6); LYMPHOCYTES % (AUTO) 35.1 % (13-45); MEAN CORPUSCULAR HEMOGLOBIN 20.4 pg (27.0-33.4); MEAN CORPUSCULAR HGB CONC 31.2 g/dL (32.0-36.0); MEAN CORPUSCULAR VOLUME 65 fl (80-97); MONOCYTES % (AUTO) 10.2 % (3-13); PLATELET COUNT 179 10^3/uL (150-450); RED BLOOD COUNT 4.43 10^6/uL (3.72-5.28); RED CELL DISTRIBUTION WIDTH 21.7 % (11.5-14.0); SEGMENTED NEUTROPHILS % (AUTO) 53.9 % (42-78); TOTAL CELLS COUNTED % (AUTO) 100 %; WHITE BLOOD COUNT 7.2 10^3/uL (4.0-10.5)
[2019-06-06] MEDS ORDERED: METHYLERGONOVINE MALEATE INJ/PF 0.2 MG/1 ML AMPULE ONE (00:57)
[2019-06-06] MEDS ORDERED: RINGERS SOLUTION,LACTATED 1,000 ML IV ONE (00:59)
--- NOTE | 2019-06-06 01:27 | Warning Signs in Babies ---
VOD Warning Signs Datetime Report Generated by [facility]: 06/06/2019 01:26 VOD#608 -Warning Signs in Babies: Needs to be viewed. (02/23/2019 16:48:Lory Mckeon RN)
[2019-06-06] MEDS ORDERED: PROMETHAZINE HCL INJ 25 MG/1 ML VIAL IV PRN (01:43)
[2019-06-06] MEDS ORDERED: DIPH/PERTUSS(ACELL)/TETANUS VAC/PF 0.5 ML SYR (>=10YO) IM PRN (01:43)
[2019-06-06] MEDS ORDERED: SIMETHICONE 80 MG TAB.CHEW PO PRN (01:43)
[2019-06-06] MEDS ORDERED: MEASLES,MUMPS&RUBELLA VACC/PF 0.5 ML VIAL SUBCUT PRN (01:43)
[2019-06-06] MEDS ORDERED: OXYTOCIN/NORMAL SALINE 20 UNIT/1,000 ML RTUINJ IV PRN (01:43)
[2019-06-06] MEDS ORDERED: ACETAMINOPHEN 1,000 MG/100 ML RTUPB IV PRN (01:43)
[2019-06-06] MEDS ORDERED: NORMAL SALINE 1000 ML 1,000 ML IV PRN (01:43)
[2019-06-06] MEDS ORDERED: ACETAMINOPHEN 325 MG TABLET PO PRN (01:43)
[2019-06-06] MEDS ORDERED: OXYCODONE-ACETAMINOPHEN 5-325 MG TABLET PO PRN (01:43)
[2019-06-06] MEDS ORDERED: ACETAMINOPHEN 1,000 MG/100 ML RTUPB IV ONE (01:51)
[2019-06-06] MEDS ORDERED: OXYTOCIN/NORMAL SALINE 20 UNIT/1,000 ML RTUINJ ONE (01:51)
--- NOTE | 2019-06-06 01:53 | Operative Report ---
Operative Report DATE OF SURGERY: 06/06/19 PREOPERATIVE DIAGNOSIS: IUP @ 39.3 wks, suspected macrosomia, SROM, active labo r, A1DM POSTOPERATIVE DIAGNOSIS: Same OPERATION: Primary low transverse hysterotomy section SURGEON: KALANI SOMERS ANESTHESIA: Spinal TISSUE REMOVED OR ALTERED: None COMPLICATIONS: None INTRAOPERATIVE FINDINGS: Female cephalic presentation with Apgars of 9 and 9 weight is still pending PROCEDURE: PROCEDURE IN DETAIL: The patient was taken to the operating room, prepared and draped in a normal sterile fashion in a supine position with a leftward tilt. A transverse skin incision was made with a scalpel and carried through to the underlying layer of fascia with the same scalpel. The fascia was excised in the midline and extended laterally with Denny. The fascia was then dissected from the rectus muscle sharply with Denny and the rectus muscle was divided and the peritoneal cavity was entered sharply with the same Metzenbaum. With good visualization of the bladder and the uterus the bladder blade was inserted. The hysterotomy was nicked with a scalpel and extended laterally with surgeon finger fraction. The was then delivered atraumatically. The nose and mouth were suctioned with a suction bulb, the cord was clamped and cut and handed off to awaiting pediatricians. Cord blood was collected. The placenta was removed manually. The uterus was exteriorized and cleared of clots and debris. The hysterotomy was closed with 0 Monocryl in a running, locked fashion. A second layer of the same suture was used to imbricate to ensure hemostasis. The uterus was returned to the abdomen and peritoneal cavity was cleared of clots and debris. The rectus muscle and peritoneum were repaired with mattress stitch of 2-0 Chromic. The fascia was closed with 0-Vicryl. The subcutaneous layer was closed with plain catgut and the skin was closed with 4-0 Vicryl. The patient tolerated the procedure well. Sponge, lap, and needle counts correct x2 and the patient was taken to recovery in stable condition.
[2019-06-06] MEDS ORDERED: KETOROLAC TROMETHAMINE INJ/PF 30 MG/1 ML SDV ONE (02:05)
[2019-06-06] MEDS ORDERED: FENTANYL CITRATE INJ/PF 100 MCG/2 ML AMPUL ONE (02:31)
[2019-06-06] MEDS ORDERED: MORPHINE SULFATE 10 MG/ML INJ ONE (03:30)
[2019-06-06] MEDS: MORPHINE SULFATE 10 MG/ML INJ IV PRN ×2 (03:32→08:15)
[2019-06-06 05:37] LABS: APPEARANCE,URINE CLEAR; BILIRUBIN,URINE NEGATIVE (NEGATIVE); COLOR,URINE STRAW; GLUCOSE, URINE NEGATIVE (NEGATIVE); KETONES,URINE NEGATIVE (NEGATIVE); LEUKOCYTE ESTERASE,URINE NEGATIVE (NEGATIVE); NITRITE,URINE NEGATIVE (NEGATIVE); PROTEIN,URINE NEGATIVE (NEGATIVE); URINE SPECIFIC GRAVITY 1.008; UROBILINOGEN,URINE NEGATIVE mg/dL (<2.0)
[2019-06-06] MEDS ORDERED: KETOROLAC TROMETHAMINE INJ/PF 30 MG/1 ML SDV IV SCH (06:00)
[2019-06-06] MEDS ORDERED: IBUPROFEN 800 MG TABLET PO SCH (06:00)
[2019-06-06 06:06] LABS: URINE AMPHETAMINES SCREEN NEGATIVE; URINE BARBITURATES SCREEN NEGATIVE; URINE COCAINE SCREEN NEGATIVE; URINE MARIJUANA (THC) SCREEN NEGATIVE; URINE METHADONE SCREEN NEGATIVE; URINE PHENCYCLIDINE SCREEN NEGATIVE
[2019-06-06 06:15] LABS: URINE BENZODIAZEPINES SCREEN UNCONFIRMED POSITIVE
[2019-06-06] MEDS: PRENATAL VITAMIN W DHA CAPSULE PO SCH (09:33)
[2019-06-06] MEDS: DOCUSATE SODIUM 100 MG CAPSULE PO SCH ×2 (09:33→17:24)
[2019-06-06] MEDS: KETOROLAC TROMETHAMINE INJ/PF 30 MG/1 ML SDV IV SCH ×2 (09:33→17:24)
[2019-06-06] MEDS: OXYCODONE-ACETAMINOPHEN 5-325 MG TABLET PO PRN (12:05)
[2019-06-06] MEDS: IBUPROFEN 800 MG TABLET PO SCH (23:08)
[2019-06-07] MEDS: IBUPROFEN 800 MG TABLET PO SCH ×4 (05:21→23:59)
[2019-06-07] MEDS: OXYCODONE-ACETAMINOPHEN 5-325 MG TABLET PO PRN ×2 (07:35→11:51)
[2019-06-07 08:37] LABS: HEMATOCRIT 22.6 % (36.0-47.0); MEAN CORPUSCULAR HGB CONC 32.2 g/dL (32.0-36.0); MEAN CORPUSCULAR VOLUME 65 fl (80-97); PLATELET COUNT 158 10^3/uL (150-450); RED BLOOD COUNT 3.46 10^6/uL (3.72-5.28); RED CELL DISTRIBUTION WIDTH 21.5 % (11.5-14.0); WHITE BLOOD COUNT 8.1 10^3/uL (4.0-10.5)
[2019-06-07 08:39] LABS: HEMOGLOBIN 7.3 g/dL (12.0-15.5)
--- NOTE | 2019-06-07 09:53 | PDOC PROGRESS REPORT ---
Subjective-OB Progress Note for:: 06/07/19 - POD #1,doing well, up voiding, AB+, Rubella Immune, Hx GDM and cerclage this Physical Exam (OB) Vital Signs: Temp Pulse Resp BP Pulse Ox 98.0 F 94 16 126/67 H 99 06/07/19 07:38 06/07/19 07:38 06/07/19 07:38 06/07/19 07:38 06/07/19 07:38 Intake & Output 06/06/19 06/07/19 06/08/19 06:59 06:59 06:59 Intake Total 1400 Output Total 300 3050 Balance -300 -1650 Weight 120.202 kg - General General Appearance: Appears well, Alert In distress: None - PIH/Pre-Eclampsia DTR's: 1 + Clonus: Negative Headache: Absent Epigastric Pain: No Visual Changes: No - Dressing Removed: No Incision: Dressing Closure Type: op site - Lochia Lochia Amount: Scant < 10 ml Lochia Color: Rubra/Red - Abdomen Description: Soft, Round Hernia Present: No Fundal Description: Firm, Midline Fundal Height: u/u - u/2 - Respiratory Respiratory Status: No respiratory distress Breath sounds: Clear - Cardiovascular Rhythm: Regular Heart Sounds: Normal auscultation - Abdominal Inspection: Normal Distension: No distension Tenderness: Nontender Abdominal Notes: +bowel sounds - Genitourinary Genitourinary Note: voiding - Extremities Upper extremity: Normal inspection Lower extremities: Edema - 1+ - Neurological Cognition: Normal Orientation: AAOx4 - Psychological Associated symptoms: Normal affect, Normal mood - Skin Skin Temperature: Warm Skin Moisture: Dry Objective-Diagnostic Laboratory: 06/07/19 08:19 06/06/19 06/07/19 00:32 08:19 WBC 8.1 RBC 3.46 L Hgb 7.3 L Hct 22.6 L MCV 65 L MCH 21.0 L MCHC 32.2 RDW 21.5 H Plt Count 158 Blood Type AB POSITIVE Antibody Screen POSITIVE Assessment and Plan(PN) - Assessment and Plan (1) GDM (gestational diabetes mellitus), class A1 Is this a current diagnosis for this admission?: Yes (3) S/P primary low transverse Is this a current diagnosis for this admission?: Yes (4) Anemia due to acute blood loss Is this a current diagnosis for this admission?: Yes (5) Incompetence of cervix Is this a current diagnosis for this admission?: Yes - Time Spent with Patient Time with patient: Less than 15 minutes Medications reviewed and adjusted accordingly: Yes - Disposition Anticipated Discharge: Home Within: within 48 hours
[2019-06-07] MEDS: FERROUS SULFATE 325 MG TABLET PO SCH ×2 (10:02→17:55)
[2019-06-07] MEDS: DOCUSATE SODIUM 100 MG CAPSULE PO SCH ×2 (10:02→17:55)
[2019-06-07] MEDS: PRENATAL VITAMIN W DHA CAPSULE PO SCH (10:02)
[2019-06-08] MEDS: IBUPROFEN 800 MG TABLET PO SCH ×2 (05:43→12:37)
--- NOTE | 2019-06-08 09:51 | PDOC PROGRESS REPORT ---
Subjective-OB Progress Note for:: 06/08/19 Subjective: Ready to go home. Tearful as remembering child who at 1 yrs of age. Physical Exam (OB) Vital Signs: Temp Pulse Resp BP Pulse Ox 98.6 F 89 18 124/65 100 06/08/19 07:33 06/08/19 07:33 06/08/19 07:33 06/08/19 07:33 06/08/19 07:33 Intake & Output 06/07/19 06/08/19 06/09/19 06:59 06:59 06:59 Intake Total 1400 2780 Output Total 3050 Balance -1650 2780 - PIH/Pre-Eclampsia DTR's: 1 + Clonus: Negative Headache: Absent Epigastric Pain: No Visual Changes: No - Dressing Removed: No Incision: Dressing Closure Type: op site - Lochia Lochia Amount: Scant < 10 ml Lochia Color: Rubra/Red - Abdomen Description: Soft, Round Hernia Present: No Bowel Sounds: Normoactive Flatus Presence: Present Stool: No Fundal Description: Firm, Midline Fundal Height: u/u - u/2 Objective-Diagnostic Laboratory: 06/07/19 08:19 Assessment and Plan(PN) - Time Spent with Patient Medications reviewed and adjusted accordingly: Yes - Disposition Anticipated Discharge: Home
[2019-06-08] MEDS: PRENATAL VITAMIN W DHA CAPSULE PO SCH (09:56)
[2019-06-08] MEDS: FERROUS SULFATE 325 MG TABLET PO SCH (09:56)
[2019-06-08] MEDS: DOCUSATE SODIUM 100 MG CAPSULE PO SCH (09:56)
[2019-06-08] MEDS: OXYCODONE-ACETAMINOPHEN 5-325 MG TABLET PO PRN (10:00)
--- NOTE | 2019-06-08 10:09 | PDOC DISCHARGE SUMMARY ---
Impression - Admit/DC Date/PCP Admission Date/Primary Care Provider: 06/06/19 00:20 KALANI SOMERS MD Discharge Date: 06/08/19 - Discharge Diagnosis (1) GDM (gestational diabetes mellitus), class A1 Is this a current diagnosis for this admission?: Yes (3) S/P primary low transverse Is this a current diagnosis for this admission?: Yes (4) Anemia due to acute blood loss Is this a current diagnosis for this admission?: Yes (5) Incompetence of cervix Is this a current diagnosis for this admission?: Yes - Additional Information Resuscitation Status: Full Code Discharge Diet: Regular Discharge Activity: Activity As Tolerated, Balance Activity w/Rest, No Lifting Over 10 Pounds, No Lifting/Push/Pulling, Non-Ambulatory Child, Pelvic Rest, Slowly Increase Activity, No tub bath Referrals: KALANI SOMERS MD [Primary Care Provider] - Prescriptions: Oxycodone HCl/Acetaminophen [Percocet 5-325 mg Tablet] 1 tab PO Q4HP PRN #20 tablet PRN Reason: Docusate Sodium [Colace 100 mg Capsule] 100 mg PO BID #30 capsule Ferrous Sulfate [Feosol 325 mg Tablet] 325 mg PO BIDPCBS #60 tablet Ibuprofen [Motrin 800 mg Tablet] 800 mg PO Q6 #30 tablet Home Medications: Pnv 102/Iron/Folate 1/Dss/Dha [Vitafol Fe+ Docusate Combo Pck] 1 each PO DAILY 06/02/17 Docusate Sodium [Colace 100 mg Capsule] 100 mg PO BID #30 capsule 06/08/19 Ferrous Sulfate [Feosol 325 mg Tablet] 325 mg PO BIDPCBS #60 tablet 06/08/19 Ibuprofen [Motrin 800 mg Tablet] 800 mg PO Q6 #30 tablet 06/08/19 Oxycodone HCl/Acetaminophen [Percocet 5-325 mg Tablet] 1 tab PO Q4HP PRN #20 tablet 06/08/19 HPI Gestational Age: 39.3 wks Reason(s) for Admission: Ceasarean Section-Primary, Obstetric Complications Procedures: Ultrasound Intrapartum Procedure(s): : Low Cervical, Transverse Results Laboratory Results: WBC 8.1 10^3/uL (4.0-10.5) 06/07/19 08:19 RBC 3.46 10^6/uL (3.72-5.28) L 06/07/19 08:19 Hgb 7.3 g/dL (12.0-15.5) L 06/07/19 08:19 Hct 22.6 % (36.0-47.0) L 06/07/19 08:19 MCV 65 fl (80-97) L 06/07/19 08:19 MCH 21.0 pg (27.0-33.4) L 06/07/19 08: MCHC 32.2 g/dL (32.0-36.0) 06/07/19 08: RDW 21.5 % (11.5-14.0) H 06/07/19 08:19 Plt Count 158 10^3/uL (150-450) 06/07/19 08:19 Lymph % (Auto) 35.1 % (13-45) 06/06/19 00:32 Power % (Auto) 10.2 % (3-13) 06/06/19 00:32 Eos % (Auto) 0.6 % (0-6) 06/06/19 00:32 Baso % (Auto) 0.2 % (0-2) 06/06/19 00:32 Absolute Neuts (auto) 3.9 10^3/uL (1.7-8.2) 06/06/19 00:32 Absolute Lymphs (auto) 2.5 10^3/uL (0.5-4.7) 06/06/19 00:32 Absolute Monos (auto) 0.7 10^3/uL (0.1-1.4) 06/06/19 00:32 Absolute Eos (auto) 0.0 10^3/uL (0.0-0.6) 06/06/19 00:32 Absolute Basos (auto) 0.0 10^3/uL (0.0-0.2) 06/06/19 00:32 Seg Neutrophils % 53.9 % (42-78) 06/06/19 00:32 Urine Color STRAW 06/06/19 05:10 Urine Appearance CLEAR 06/06/19 05:10 Urine pH 7.0 (5.0-9.0) 06/06/19 05:10 Ur Specific [place] 1.008 06/06/19 05:10 Urine Protein NEGATIVE mg/dL (NEGATIVE) 06/06/19 05:10 Urine Glucose (UA) NEGATIVE mg/dL (NEGATIVE) 06/06/19 05:10 Urine Ketones NEGATIVE mg/dL (NEGATIVE) 06/06/19 05:10 Urine Blood MODERATE (NEGATIVE) H 06/06/19 05:10 Urine Nitrite NEGATIVE (NEGATIVE) 06/06/19 05:10 Urine Bilirubin NEGATIVE (NEGATIVE) 06/06/19 05:10 Urine Urobilinogen NEGATIVE mg/dL (<2.0) 06/06/19 05:10 Ur Leukocyte Esterase NEGATIVE (NEGATIVE) 06/06/19 05:10 Urine Ascorbic Acid NEGATIVE (NEGATIVE) 06/06/19 05:10 Urine Opiates Screen UNCONFIRMED POSITIVE 06/06/19 05:10 Urine Methadone Screen NEGATIVE 06/06/19 05:10 Ur Barbiturates Screen NEGATIVE 06/06/19 05:10 Ur Phencyclidine Scrn NEGATIVE 06/06/19 05:10 Ur Amphetamines Screen NEGATIVE 06/06/19 05:10 U Benzodiazepines Scrn UNCONFIRMED POSITIVE 06/06/19 05:10 Urine Cocaine Screen NEGATIVE 06/06/19 05:10 U Marijuana (THC) Screen NEGATIVE 06/06/19 05:10 RPR NONREACTIVE (NONREACTIVE) 06/06/19 00:32 Blood Type AB POSITIVE 06/06/19 00:32 Antibody Screen POSITIVE 06/06/19 00:32 Antibody Identification Anti-E 06/06/19 00:32 Antigen Identification Cancelled 06/06/19 00:34 Plan Plan of Treatment: Follow up at [facility] in 1 wk or prn.
[2019-06-08 12:22] VITALS: BP 112/42
--- NOTE | 2019-06-09 14:35 | Delivery Summary ---
Del Sum A-C Datetime Report Generated by CPN: 06/09/2019 14:34 DELIVERY PERSONNEL DELIVERY PERSONNEL: [id number] Delivery Doctor:: Cindy Mojica MD Delivery Doctor:: Cindy Mojica MD Anesthesiologist:: Terry GEOGRAPHY PROFESSOR:: Jose Francisco Dumont CRNA GEOGRAPHY PROFESSOR:: Jose Francisco Dumont CRNA Labor and Delivery Nurse:: Lory Mckeon RN Labor and Delivery Nurse:: Perlita Banegas RN Business Attorney:: Lory Mckeon RN Nursery Nurse:: Varsha Koehler RN Real Estate Specialist/ANIMAL BEHAVIOURIST: Diana Lee, ST Real Estate Specialist/ANIMAL BEHAVIOURIST: Dianaheather Lee, ST Real Estate Specialist/ANIMAL BEHAVIOURIST: Milla Jacques, ELECTRICAL ELECTRONICS ENGINEER MATERNAL INFORMATION Delivery Anesthesia: Spinal Medications After Delivery: Pitocin Bolus-Please Comment Delivery QBL: 1000 Maternal Complications: Other Complication Details: macrosomia, primary LABOR SUMMARY EDC: 06/12/2019 00:00 No. Babies in Womb: 1 Attempted: No Labor Anesthesia: None LABOR INFORMATION Reason for Induction: Not Applicable Onset of Labor: 06/05/2019 23:30 Oxytocin: N/A Group B Beta Strep: unknown Steroids Given: None Reason Steroids Not Administered: Not Applicable MEMBRANES Membranes Rupture Method: Spontaneous Membranes Rupture Method: Spontaneous Membranes Rupture Method: Spontaneous Rupture of Membranes: 06/05/2019 23:30 Rupture of Membranes: 05/30/2019 23:30 Length of Rupture (hr): 1.63 Length of Rupture (hr): 145.63 Amniotic Fluid Color: Clear Amniotic Fluid Color: Clear Amniotic Fluid Color: Clear Amniotic Fluid Amount: None Amniotic Fluid Amount: Moderate Amniotic Fluid Amount: Moderate Amniotic Fluid Odor: Normal Amniotic Fluid Odor: Normal Amniotic Fluid Odor: Normal STAGES OF LABOR Stage 3 hr: 0 Stage 3 min: 2 Total Time in Labor hr: 1 Total Time in Labor min: 40 VAGINAL DELIVERY Episiotomy: None Laceration #1: None Laceration Extension #1: N/A CSECTION DELIVERY Primary Indication: Other Other Primary Indication: Macrosomia Secondary Indication: N/A CSection Urgency: Non-Scheduled CSection Incidence: N/A Labor: N/A Elective: N/A CSection Incision: Lower Uterine Transverse CSection Incision: Lower Uterine Transverse BABY A INFORMATION Infant Delivery Date/Time: 06/06/2019 01:08 Method of Delivery: Born in Route : No : N/A Forceps: N/A Vacuum Extraction: N/A Shoulder Dystocia : No PRESENTATION/POSITION BABY A Presentation: Cephalic Presentation: Cephalic Cephalic Presentation: Vertex Vertex Position: Right Occipital Anterior Breech Presentation: N/A PLACENTA INFORMATION BABY A Placenta Delivery Time : 06/06/2019 01:10 Placenta Method of Delivery: Manual Removal Placenta Status: Delivered SCORES BABY A Heart Rate 1 min: >100 bpm Resp Effort 1 min: Good Cry Reflex Irritability 1 min: Cough or Sneeze or Pulls Away Muscle Tone 1 min: Active Motion Color 1 min: Blue/Pale Resuscitation Effort 1 min: Tactile Stimulation SCORE 1 MIN: 8 Heart Rate 5 min: >100 bpm Resp Effort 5 min: Good Cry Reflex Irritability 5 min: Cough or Sneeze or Pulls Away Muscle Tone 5 min: Active Motion Color 5 min: Body [place], Extremities Blue Resuscitation Effort 5 min: Tactile Stimulation SCORE 5 MIN: 9 INFANT INFORMATION BABY A Gestational Age at Delivery: 39.1 Gestational Status: Full Term- 39- 40.6 Weeks Outcome : Liveborn Infant Condition : Stable Infant Sex: Female IDENTIFICATION BABY A Verification Date/Time: 06/06/2019 01:20 ID Band Number: [id number] Mother's Name Verified: Yes RN Verifying Infant: K Jose Miguel RN Additional Verifying Personnel: [employer] RN WEIGHT/LENGTH BABY A Infant Birthweight (gm): 4538 Weight (lb): 10 Infant Weight (oz): 0 Length (in): 20.00 Infant Length (cm): 50.80 CORD INFORMATION BABY A No. Cord Vessels: 3 Nuchal Cord : N/A Cord Blood Taken: Yes-For Storage (Mom's Blood type +) ASSESSMENT BABY A Skin to Skin: Yes Skin to Skin: Yes Skin to Skin: Yes BABY B INFORMATION : N/A
== END 2019-06-08 13:10 | disposition home or self-care (01) | DRG 786 ==
LOC: LC 00:02 → LR 00:20 → 2S 03:55
PROVIDERS: ADMIT Obstetrics & Gynecology; ATTEND Obstetrics & Gynecology
PROC: 10D00Z1 Extraction of Products of Conception, Low, Open Approach (ICD-10-PCS; principal; 2019-06-06)
DX: O24.429 Gestational diabetes mellitus in childbirth, unspecified control (principal); O34.33 Maternal care for cervical incompetence, third trimester; D62 Acute posthemorrhagic anemia; O90.81 Anemia of the puerperium; O36.63X0 Maternal care for excessive fetal growth, third trimester, not applicable or unspecified; Z3A.39 39 weeks gestation of pregnancy; Z37.0 Single live birth
CPT/HCPCS: 1961; 36415; 80307; 81005; 85025; 85027; 86592; 86850; 86870; 86900; 86901; 94799; J0131; J0690; J1885; J2210; J2250; J2270; J2370; J2405; J2590; J3010; J3490